=== PATIENT | female | born 2000 | race Caucasian/White ===

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

== ENCOUNTER 2019-12-22 12:58 | Emergency (ER) | payer OTHER, BC ==
--- NOTE | 2019-12-22 13:27 | EDM.PDOC ---
ED HPI GENERAL MEDICAL PROBLEM - General Chief Complaint: General Stated Complaint: NOSE PAIN Time Seen by Provider: 12/22/19 13:17 Source of Information: Reports: Patient History Limitations: Reports: No Limitations - History of Present Illness INITIAL COMMENTS - FREE TEXT/NARRATIVE: This 19 year old female is admitted to the ED with her mom with a chief complaint of accidently striking the bridge of her nose with an old wooden chair three days ago (Wednesday). She complains of persistent headaches and intermittent vomiting since her injury. She denies any visual symptoms. She denies any focal neurologic deficits. Onset: Gradual Duration: Getting Worse Location: Reports: Head, Face Severity: Mild (to moderate nasal pain) Context: Reports: Trauma Nose Pain Score (Numeric/FACES): 7 - Related Data Allergies Allergy/AdvReac Type Severity Reaction Status Date / Time No Known Allergies Allergy Verified 12/22/19 13:17 Home Meds: Home Meds Ibuprofen [Motrin] 600 mg PO BIDM PRN 7 Days #14 tab 12/22/19 [Rx] Propranolol [Inderal LA] 60 mg PO ASDIRECTED 12/22/19 [History] Past Medical History - Past Health History Medical/Surgical History: Denies Medical/Surgical History ED ROS GENERAL - Review of Systems Review Of Systems: See Below Constitutional: Reports: No Symptoms HEENT: Reports: Nose Pain (across bridge of nose), Other (complains of frontal headache) Respiratory: Reports: No Symptoms Cardiovascular: Reports: No Symptoms Endocrine: Reports: No Symptoms GI/Abdominal: Reports: No Symptoms Musculoskeletal: Reports: No Symptoms Skin: Reports: No Symptoms Neurological: Reports: No Symptoms, Headache (headache as noted with nausea and vomiting) Psychiatric: Reports: No Symptoms ED EXAM, GENERAL - Physical Exam Exam: See Below Exam Limited By: No Limitations General Appearance: Alert, WD/WN, No Apparent Distress Eye Exam: Bilateral Eye: EOMI, Normal Inspection, PERRL (4.5mm and reactive to light and accomadation) Ears: Normal External Exam, Normal Canal, Hearing Grossly Normal, Normal TMs Ear Exam: Bilateral Ear: Auricle Normal, Canal Normal, TM normal Nose: Nasal Tenderness (over the bridge of the nose with slight swelling), Nasal Swelling (as noted above) Throat/Mouth: Normal Inspection, Normal Lips, Normal Teeth, Normal Gums, Normal Oropharynx, Normal Voice Head: Normocephalic, Facial Tenderness (tenderness is noted above both orbits and also the forehead. No depressions of the skull.) Neck: Normal Inspection, Supple, Non-Tender, Full Range of Motion Respiratory/Chest: No Respiratory Distress, Lungs Clear, Normal Breath Sounds, No Accessory Muscle Use, Chest Non-Tender Cardiovascular: Normal Peripheral Pulses, Regular Rate, Rhythm, No Edema, No Gallop, No JVD, No Murmur, No Rub Peripheral Pulses: 4+: Carotid (L), Carotid (R), Radial (L), Radial (R) GI/Abdominal: Normal Bowel Sounds, Soft, Non-Tender (Female) Exam: Deferred Rectal (Female) Exam: Deferred Back Exam: Normal Inspection Extremities: Normal Inspection, Normal Range of Motion Neurological: Alert, Oriented, CN II-XII Intact, Normal Cognition, Normal Gait, Normal Reflexes, No Motor/Sensory Deficits Skin Exam: Warm, Dry, Intact, Normal Color, No Rash Lymphatic: No Adenopathy Course - Vital Signs Text/Narrative:: The patient did well in the ED. I discussed with the patient and her mother that she has a mild concussion and a nasal contusion. She will be discharged. The patient agrees with the discharge plan. Last Recorded V/S: Last Vital Signs Temp 96.7 F 12/22/19 13:15 Pulse 61 12/22/19 13:15 Resp 18 12/22/19 13:15 BP 150/63 H 12/22/19 13:15 Pulse Ox 99 12/22/19 13:15 - Orders/Labs/Meds Labs: Laboratory Tests 12/22/19 Range/Units 13:34 Urine HCG, Qual NEGATIVE (NEGATIVE) Departure - Departure Time of Disposition: 15:06 Disposition: Home, Self-Care 01 Condition: Good Clinical Impression: Contusion of nose, initial encounter Blunt head trauma Qualifiers: Encounter type: initial encounter Qualified Code(s): S09.8XXA - Other specified injuries of head, initial encounter - Discharge Information *PRESCRIPTION DRUG MONITORING PROGRAM REVIEWED*: Yes *COPY OF PRESCRIPTION DRUG MONITORING REPORT IN PATIENT SARA: Yes Instructions: Facial or Scalp Contusion, Concussion, Adult, Head Injury, Adult , [id number] Referrals: PCP,None [Primary Care Provider] - Forms: ED Department Discharge Additional Instructions: Take all medications as directed. Follow up with your PCP in the next two to four days. Rest for the next 24 hours. Return to the ED if your condition gets worse or should you have any questions or concerns. The following information is given to patients seen in the emergency department who are being discharged to home. This information is to outline your options for follow-up care. We provide all patients seen in our emergency department with a follow-up referral. The need for follow-up, as well as the timing and circumstances, are variable depending upon the specifics of your emergency department visit. If you don't have a primary care physician on staff, we will provide you with a referral. We always advise you to contact your personal physician following an emergency department visit to inform them of the circumstance of the visit and for follow-up with them and/or the need for any referrals to a consulting specialist. The emergency department will also refer you to a specialist when appropriate. This referral assures that you have the opportunity for follow-up care with a specialist. All of these measure are taken in an effort to provide you with optimal care, which includes your follow-up. Under all circumstances we always encourage you to contact your private physician who remains a resource for coordinating your care. When calling for follow-up care, please make the office aware that this follow-up is from your recent emergency room visit. If for any reason you are refused follow-up, please contact the [facility] Department at and asked to speak to the emergency department charge nurse. Sepsis Event Note - Focused Exam Vital Signs: Vital Signs Temp Pulse Resp BP Pulse Ox 12/22/19 13:15 96.7 F 61 18 150/63 H 99 Date Exam was Performed: 12/22/19 Time Exam was Performed: 15:05
--- NOTE | 2019-12-22 14:53 | CT ---
CT facial bones Technique: Multiple axial sections through the facial bones were obtained. Reconstructed coronal and sagittal images were reviewed. Comparison: No prior facial bone study. Findings: Opacified posterior right ethmoid sinus is again noted. Minimal mucosal thickening is seen within the right maxillary sinus. Paranasal sinuses show no fluid. Right and left globes are symmetric in size. No facial bone fracture is identified. Impression: 1. Chronic appearing sinus findings. 2. No acute fracture is appreciated on CT study of the facial bones. Diagnostic code #2 This report was dictated in [place] Standard Time
--- NOTE | 2019-12-22 14:53 | CT ---
Head CT Technique: Multiple axial sections through the brain were obtained. Intravenous contrast was not utilized. Comparison: Prior head CT study of 08/10/18. Findings: Ventricles along with basal cisterns and sulci over the convexities are within normal limits for the patient's age. No abnormal parenchymal densities are seen. No evidence of intracranial hemorrhage. No midline shift or mass-effect is seen. Opacified portions of the posterior right ethmoid sinus is noted. Other visualized sinuses are clear. Mastoid sinuses show nothing acute. Impression: 1. Opacified posterior right ethmoid sinus most likely chronic. 2. No acute intracranial abnormality is appreciated. Diagnostic code #2 This report was dictated in [place] Standard Time
[2019-12-22 15:29] VITALS: BP 129/57; PULSE 58
== END 2019-12-22 15:25 | disposition home or self-care (01) ==
LOC: MW.ED 12:58
DX: S00.33XA Contusion of nose, initial encounter (principal); Z79.899 Other long term (current) drug therapy; W22.8XXA Striking against or struck by other objects, initial encounter
CPT/HCPCS: 70450; 70450-26; 70486; 70486-26; 81025; 99282; 99284-25

== ENCOUNTER 2023-03-17 19:22 | Emergency (ER) | payer OTHER ==
[2023-03-17] MEDS ORDERED: Benzocaine 20% Topical Spray UD MUCMEM ONE (22:55)
[2023-03-17] MEDS ORDERED: Lidocaine 2% Viscous Solution 15 ML UD PO ONE (22:55)
[2023-03-17] MEDS ORDERED: Cephalexin 500 MG Cap PO ONE (22:56)
[2023-03-17] MEDS ORDERED: Acetaminophen/HYDROcodone 325-5 MG Tab PO ONE (22:56)
[2023-03-18 04:41] VITALS: BP 123/67; PULSE 76
== END 2023-03-17 23:12 | disposition home or self-care (01) ==
LOC: MW.ED 19:22
DX: O99.612 Diseases of the digestive system complicating pregnancy, second trimester (principal); K04.7 Periapical abscess without sinus; Z3A.25 25 weeks gestation of pregnancy
CPT/HCPCS: 99282; A9270

== ENCOUNTER 2023-06-18 05:02 | Inpatient (IN) | payer OTHER ==
[2023-06-18] MEDS ORDERED: Sodium Chloride 0.9% 20 ML SDV IV PRN (06:40)
[2023-06-18] MEDS ORDERED: Tranexamic Acid 1,000 MG in Sodium Chloride 0.9% 100 ML IV PRN (06:40)
[2023-06-18] MEDS ORDERED: Nalbuphine HCl 10 MG/ 1ML Amp IVPUSH PRN (06:40)
[2023-06-18] MEDS ORDERED: Sodium Chloride 0.9% 10 ML Syringe FLUSH PRN (06:40)
[2023-06-18] MEDS ORDERED: Misoprostol 200 MCG Tab PO PRN (06:40)
[2023-06-18] MEDS ORDERED: Lidocaine 1% 50 ML MDV INJECT PRN (06:40)
[2023-06-18] MEDS ORDERED: Methylergonovine 0.2 MG/1 ML Amp IM PRN (06:40)
[2023-06-18] MEDS ORDERED: Butorphanol 1 MG/ML SDV IVPUSH PRN (06:40)
[2023-06-18] MEDS ORDERED: Terbutaline 1 MG/ML SDV SUBCUT PRN (06:40)
[2023-06-18] MEDS ORDERED: Carboprost Tromethamine 250 MCG/1 mL Vial IM PRN (06:40)
[2023-06-18] MEDS ORDERED: Sodium Chloride 0.9% 2.5 ML Syringe FLUSH PRN (06:40)
[2023-06-18] MEDS ORDERED: Water For Irrigation,Sterile 1,000 ML Container IRR PRN (06:40)
[2023-06-18] MEDS ORDERED: Ondansetron 4 MG/2 ML SDV IVPUSH PRN (06:40)
[2023-06-18] MEDS ORDERED: Oxytocin/0.9 % Sodium Chloride 30 UNIT/500 ML BAG IV SCH ×2 (06:45)
[2023-06-18] MEDS ORDERED: Misoprostol 25 MCG (1/4 of 100 MCG) Tab VAG PRN (07:00)
[2023-06-18 07:05] LABS: HEMATOCRIT 33.1 % (36.0-46.0); HEMOGLOBIN 11.2 g/dL (12.0-16.0); MEAN CORPUSCULAR HEMOGLOBIN 29.6 pg (27.0-32.0); MEAN CORPUSCULAR HGB CONC 33.8 g/dL (31.0-37.0); MEAN CORPUSCULAR VOLUME 87.6 fL (80.0-98.0); RED BLOOD CELL COUNT 3.78 M/uL (4.30-5.90); WHITE BLOOD CELL COUNT,WBC 11.14 K/uL (4.0-11.0)
[2023-06-18] MEDS ORDERED: ePHEDrine 50 MG/ML SDV IVPUSH PRN ×2 (08:22)
[2023-06-18] MEDS ORDERED: Phenylephrine HCl 0.5 MG/5 ML AMP IVPUSH PRN (08:22)
[2023-06-18] MEDS ORDERED: Ropivacaine HCl/PF 400 MG in Premix Bag 1 BAG EPIDUR SCH (08:30)
[2023-06-18] MEDS: Misoprostol 25 MCG (1/4 of 100 MCG) Tab VAG PRN ×3 (11:52→20:27)
[2023-06-18] MEDS ORDERED: Misoprostol 25 MCG (1/4 of 100 MCG) Tab PO ONE (20:00)
[2023-06-19] MEDS: Lactated Ringers 1,000 ML IV SCH ×2 (00:39→03:10)
[2023-06-19] MEDS ORDERED: Sodium Chloride 0.9% 250 ML SCH (05:45)
[2023-06-19] MEDS ORDERED: Ibuprofen 400 MG Tab PO PRN (08:23)
[2023-06-19] MEDS ORDERED: Bisacodyl 10 MG Supp RECTAL PRN (08:23)
[2023-06-19] MEDS ORDERED: Benzocaine/Menthol 20%-0.5% Spray 78 GM Cannister TOP PRN (08:23)
[2023-06-19] MEDS ORDERED: Lanolin 100% Cream 7 GM Tube TOP PRN (08:23)
[2023-06-19] MEDS ORDERED: Witch Hazel Medicated Pads 40/Jar TOP PRN (08:23)
[2023-06-19] MEDS ORDERED: Acetaminophen 500 MG Tab PO PRN ×2 (08:23)
[2023-06-19] MEDS: Ibuprofen 800 MG Tab PO PRN ×2 (11:33→18:12)
[2023-06-19] MEDS: Docusate Sodium 100 MG Cap PO PRN ×2 (11:33→23:52)
[2023-06-20 06:13] LABS: HEMATOCRIT 30.7 % (36.0-46.0); HEMOGLOBIN 10.3 g/dL (12.0-16.0)
[2023-06-20] MEDS: Ibuprofen 800 MG Tab PO PRN (10:43)
[2023-06-20] MEDS: Docusate Sodium 100 MG Cap PO PRN (11:56)
[2023-06-20 15:21] VITALS: BP 128/70; PULSE 90
== END 2023-06-20 16:12 | disposition home or self-care (01) | DRG 807 ==
LOC: MW.OBCHECK 05:02 → MW.OB 05:05 → MW.OBCHECK 06:41 → MW.OB 06:41 → OBSVTOIN 06-19 08:50 → MW.OB 06-19 13:18
PROVIDERS: ADMIT Obstetrics & Gynecology Obstetrics; ATTEND Obstetrics & Gynecology
PROC: 10E0XZZ Delivery of Products of Conception, External Approach (ICD-10-PCS; principal; 2023-06-19)
PROC: 0KQM0ZZ Repair Perineum Muscle, Open Approach (ICD-10-PCS; 2023-06-19)
PROC: 3E0R3BZ Introduction of Anesthetic Agent into Spinal Canal, Percutaneous Approach (ICD-10-PCS; 2023-06-19)
PROC: 00HU33Z Insertion of Infusion Device into Spinal Canal, Percutaneous Approach (ICD-10-PCS; 2023-06-19)
PROC: 3E033VJ Introduction of Other Hormone into Peripheral Vein, Percutaneous Approach (ICD-10-PCS; 2023-06-19)
DX: O42.02 Full-term premature rupture of membranes, onset of labor within 24 hours of rupture (principal); Z37.0 Single live birth; O77.0 Labor and delivery complicated by meconium in amniotic fluid; O70.1 Second degree perineal laceration during delivery; O69.81X0 Labor and delivery complicated by cord around neck, without compression, not applicable or unspecified; O76 Abnormality in fetal heart rate and rhythm complicating labor and delivery; Z79.899 Other long term (current) drug therapy; Z3A.39 39 weeks gestation of pregnancy
CPT/HCPCS: 01967; 36415; 51702; 59025; 59409; 85014; 85018; 85027; 86592; 86850; 86900; 86901; A9270-GY; J2300; J2405; J2590; J7050; J7120

== ENCOUNTER 2025-04-07 13:21 | Emergency (ER) | payer BC ==
[2025-04-07 14:24] VITALS: BP 133/62; PULSE 73
[2025-04-07] MEDS ORDERED: Sodium Chloride 0.9% 20 ML SDV IV PRN (14:43)
[2025-04-07] MEDS ORDERED: Sodium Chloride 0.9% 10 ML Syringe FLUSH PRN (14:43)
[2025-04-07] MEDS ORDERED: Sodium Chloride 0.9% 2.5 ML Syringe FLUSH PRN (14:43)
[2025-04-07] MEDS: Sodium Chloride 0.9% 1,000 ML IV STA (15:07)
[2025-04-07 15:18] LABS: HEMATOCRIT 38.4 % (37.0-47.0); HEMOGLOBIN 13.1 g/dL (12.0-16.0); MEAN CORPUSCULAR HEMOGLOBIN 29.2 pg (28.0-32.0); MEAN CORPUSCULAR HGB CONC 34.1 g/dL (32.0-36.0); MEAN CORPUSCULAR VOLUME 85.5 fL (83.0-99.0); MEAN PLATELET VOLUME 10.6 fL (9.4-12.3); PLATELET COUNT,PLT 199 K/uL (150-400); RED BLOOD CELL COUNT 4.49 M/uL (4.10-5.30); WHITE BLOOD CELL COUNT,WBC 5.96 K/uL (3.9-11.3)
[2025-04-07 15:29] LABS: LYMPHOCYTES ABSOLUTE MAN 0.72 K/uL (1.00-4.80); LYMPHOCYTES PERCENT MAN 12 % (24-44); MONOCYTES ABSOLUTE MAN 0.66 K/uL (0.00-0.80); MONOCYTES PERCENT MAN 11 % (0-8); SEG NEUTROPHILS ABSOLUTE MAN 4.29 K/uL (1.80-7.70); SEG NEUTROPHILS PERCENT MAN 72 % (41-71)
[2025-04-07 15:35] LABS: ALBUMIN 3.4 g/dL (3.4-5.0); BILIRUBIN TOTAL 0.4 mg/dL (0.2-1.0); CALCIUM 8.3 mg/dL (8.5-10.1); CARBON DIOXIDE,CO2 24.2 mmol/L (21.0-32.0); CREATININE 0.8 mg/dL (0.6-1.0); EST CRCL DRUG DOSING (CG) 95.05 mL/min; MAGNESIUM 1.8 mg/dL (1.8-2.4); POTASSIUM,K 3.6 mmol/L (3.5-5.1); PROTEIN TOTAL,TP 6.7 g/dL (6.4-8.2)
[2025-04-07 16:15] LABS: APPEARANCE,URINE CLEAR; BILIRUBIN,URINE NEGATIVE (NEGATIVE); COLOR,URINE YELLOW; GLUCOSE,URINE NEGATIVE (NEGATIVE); KETONES,URINE >=80 mg/dL (NEGATIVE); LEUKOCYTE ESTERASE,URINE NEGATIVE (NEGATIVE); NITRITE,URINE NEGATIVE (NEGATIVE); OCCULT BLOOD,URINE NEGATIVE (NEGATIVE); PH,URINE 5.5 (5.0-8.0); PROTEIN,URINE NEGATIVE (NEGATIVE); UROBILINOGEN,URINE 0.2 EU/dL (<2.0)
[2025-04-07 16:48] LABS: BACTERIA,URINE 1+ (NEGATIVE); EPITHELIAL CELLS,URINE FEW (NONE-FEW); MUCUS,URINE LIGHT (NONE-MOD); RBC,URINE 0-2 (0-2/HPF)
== END 2025-04-07 17:30 | disposition home or self-care (01) ==
LOC: MW.ED 13:21
DX: O21.9 Vomiting of pregnancy, unspecified (principal); O99.891 Other specified diseases and conditions complicating pregnancy; R82.71 Bacteriuria; Z3A.09 9 weeks gestation of pregnancy; Z79.899 Other long term (current) drug therapy
CPT/HCPCS: 36415; 80053; 81001; 83735; 85007; 85027; 96360; 99284; J7030; 99283